=== PATIENT | female | born 1990 | race African-American/Black ===

== ENCOUNTER 2016-05-07 14:31 | Emergency (ER) | payer BC, OTHER ==
[~2016-05-07] VITALS: Ht 160 cm; Wt 55.0 kg
[~2016-05-07 14:31] MED LIST: IBUP800T23 PO; Z.0.BCPILL PO
[2016-05-07 14:38] VITALS: BP 125/77; PULSE 68; RESP 20; TEMP 98.5; O2SAT 99
--- NOTE | 2016-05-07 15:16 | PD ---
HPI Chief Complaint: Psychiatric Symptoms Time Seen by Provider: 15:15 Travel History International Travel<30 days: No Contact w/Intl Traveler<30days: No Traveled to known affect area: No History of Present Illness HPI 25-year-old female brought to the emergency Department under [place] act for suicidal ideations. Patient states that she's had worsening depression over the past several months and today was contemplating suicide. States that she thought about hanging herself with a cord or cutting herself with glass all of which were found in her house. States that she did text her and told him that she was having suicidal ideations and he called the police who then placed her under [place] act. The patient denies any attempts to harm herself. Denies any ingestion of substances in an attempt to harm herself. Denies any medical complaints. Denies , last menstrual period 1 week ago. Denies any chest pain, shortness of breath, abdominal pain, nausea, vomiting, lightheadedness, dizziness. Denies alcohol or drug use. No other complaints. PFSH Past Medical History Medical History: Denies Significant Hx Diminished Hearing: No ?: Not : 0 Social History Alcohol Use: Yes Tobacco Use: No Substance Use: No Allergies-Medications (Allergen,Severity, Reaction): Coded Allergies: No Known Allergies (Verified , 05/07/16) Reported Meds & Prescriptions Reported Meds & Active Scripts Active Reported Control Pills (Miscellaneous Medication) Tab 1 Tab PO DAILY Review of Systems Except as stated in HPI: all other systems reviewed are Neg Physical Exam Narrative GENERAL: Well-nourished and well-developed pleasant female patient in no acute distress who is nontoxic appearing. SKIN: Warm and dry. HEAD: Normocephalic and atraumatic. EYES: No injection, drainage, or hyphema noted. PERRLA. EOMI. ENT: No nasal drainage noted. Oropharynx is clear. NECK: Supple and the trachea is midline. CARDIOVASCULAR: Regular rate and rhythm. RESPIRATORY: Breath sounds are equal bilaterally with no accessory muscle use, wheezing, rhonchi, or crackles. GASTROINTESTINAL: Abdomen is soft, non-tender, and nondistended. MUSCULOSKELETAL: No obvious deformities, swelling, cyanosis, or ecchymosis is present throughout the upper and lower extremities. Patient has full range of motion without any signs of neurovascular compromise. NEUROLOGICAL: Awake, alert, and oriented. Normal speech and gait. Cranial nerves are grossly intact. Data Data Last Documented VS Vital Signs Date Time Temp Pulse Resp B/P Pulse Ox O2 Delivery O2 Flow Rate FiO2 05/07/16 14:38 98.5 68 20 125/77 99 Orders Complete Blood Count With Diff (05/07/16 15:03) Comprehensive Metabolic Panel (05/07/16 15:03) Psych Screen (05/07/16 15:03) Drug Screen, Random Urine (05/07/16 15:03) Alcohol (Ethanol) (05/07/16 15:03) Ed Urine Pregnancytest Poc (05/07/16 15:03) MDM Medical Decision Making Medical Screen Exam Complete: Yes Emergency Medical Condition: Yes Differential Diagnosis Differential: Depression versus adjustment reaction versus anxiety versus PTSD versus psychosis NOS versus mood disorder NOS versus substance induced mood disorder versus ODD versus adjustment reaction versus schizophrenia versus bipolar disorder versus schizoaffective versus electrolyte abnormality Narrative Course Patient presents under a [place] act. Physical examination and vital signs are essentially unremarkable. Patient has no medical complaints to report. Psych screen has been ordered. If the laboratory results are unremarkable, the patient will be medically cleared for psychiatric evaluation and disposition. Diagnosis Primary Impression: Depression with suicidal ideation Prema Graham May 07, 2016 15:15
[2016-05-07 17:35] LABS: AUTOMATED NEUTROPHIL # 6.3 TH/MM3 (1.8-7.7); BASOPHIL % 0.4 % (0.0-2.0); EOSINOPHIL # 0.2 TH/MM3 (0-0.4); EOSINOPHIL % 1.7 % (0.0-4.0); HEMATOCRIT 36.5 % (35.0-46.0); HEMO FLAGS DIFF FINAL; LYMPH % 30.3 % (9.0-44.0); LYMPHOCYTE # 3.2 TH/MM3 (1.0-4.8); MEAN CELL VOLUME 89.9 FL (80.0-100.0); MEAN CORPUSCULAR HEMOGLOBIN 29.7 PG (27.0-34.0); MEAN CORPUSCULAR HGB CONC 33.1 % (32.0-36.0); MONO % 7.2 % (0.0-8.0); NEUT % 60.4 % (16.0-70.0); PLATELET COUNT 320 TH/MM3 (150-450); RED BLOOD COUNT 4.06 MIL/MM3 (4.00-5.30); RED CELL DISTRIBUTION WIDTH 12.9 % (11.6-17.2); WHITE BLOOD COUNT 10.4 TH/MM3 (4.0-11.0)
[2016-05-07 17:50] LABS: ALT (GPT) 15 U/L (10-53); ANION GAP 5 MEQ/L (5-15); AST (GOT) 12 U/L (15-37); BICARBONATE 28.7 MEQ/L (21.0-32.0); BLOOD UREA NITROGEN 15 MG/DL (7-18); CHLORIDE 106 MEQ/L (98-107); GLOMERULAR FILTRATION RATE 105 ML/MIN (>89); POTASSIUM 3.5 MEQ/L (3.5-5.1); SODIUM (NA) 140 MEQ/L (136-145)
[2016-05-07 17:53] LABS: ALKALINE PHOSPHATASE 59 U/L (45-117); TOTAL BILIRUBIN ADULT 0.8 MG/DL (0.2-1.0)
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
== END 2016-05-07 19:05 | disposition home or self-care (01) ==
LOC: NEPJ 14:31
DX: F43.20 Adjustment disorder, unspecified (principal)
CPT/HCPCS: 80053; 80307; 85025; 99283